=== PATIENT | male | born 1940 | race Caucasian/White ===

== ENCOUNTER 2022-03-03 06:26 | Day surgery (SDC) | payer MEDICARE, BC, SELFPAY ==
[2022-03-03] VITALS (22 sets, daily range): BP systolic 93–155; BP diastolic 43–92; PULSE 50–82; RESP 12–24; TEMP 35.7–36.8; O2SAT 91–98; BMI 37.0
[2022-03-03] MEDS: LACTATED RINGERS 1000 ML 1,000 ML 35 ML IV (07:00)
[2022-03-03] MEDS: ACETAMINOPHEN 500 MG TABLET 1000 MG PO ×2 (07:34→17:37)
[2022-03-03] MEDS: CELECOXIB 200 MG CAPSULE PO ×2 (07:35→20:41)
[2022-03-03] MEDS: OXYCODONE (CR) 10 MG TAB.ER.12H PO (07:36)
[2022-03-03] MEDS: MIDAZOLAM HCL 1 MG/ML inj IVP (07:55)
[2022-03-03] MEDS: ETHYL CHLORIDE 116 ML SPRAY 1 APPLIC TOPICAL (07:55)
[2022-03-03] MEDS: SODIUM CHLORIDE 0.9 % (FLUSH) 10 ML SYRINGE IVF (07:55)
[2022-03-03] MEDS: fentaNYL 100 MCG/2 ML inj IVP (07:55)
--- NOTE | 2022-03-03 08:03 | SUR.PREOP ---
TIME?OUT:?0754 PT/RN/MDA?VERIFICATION?OF?SURGICAL?SITE RIGHT KNEE,?PROCEDURE NERVE BLOCK,?AND?CONSENT OBTAINED?PRIOR?TO?INVASIVE?PROCEDURE.
[2022-03-03] MEDS: CEFAZOLIN 2 GM INJ IVP (08:22)
--- NOTE | 2022-03-03 09:09 | P.NB_ITS ---
Nerve Block Nerve Block Time Seen by Provider: 07:40 Date Seen: 03/03/22 Type of block requested by surgeon for post-operative analgesia: adductor canal Side: right Time out performed: Yes Verification of patient name: Yes Verification of date of : Yes Site marking: site marked Name of person performing procedure: Stew Continuous monitoring Was continuous monitoring of O2 sat, B/P, groundwater monitoring technician, recorded every 15 minutes?: Yes Procedure Checklist: sterile prep, needles and gloves Ultrasound guided. Images saved: Yes Medications given in 5ml increments after negative aspiration: Ropivicaine %: 0.5 mL: 20 Needle gauge: 22 Decadron (mg): 10 Precedex (mcg): 25 Patient tolerated procedure well: Yes Additional comments: Needle noted adjacent to nerve
--- NOTE | 2022-03-03 09:10 | P.NB_ITS ---
Nerve Block Nerve Block Time Seen by Provider: 07:40 Date Seen: 03/03/22 Type of block requested by surgeon for post-operative analgesia: geniculars Time out performed: Yes Verification of patient name: Yes Verification of date of : Yes Site marking: site marked Name of person performing procedure: Stew Continuous monitoring Was continuous monitoring of O2 sat, B/P, monitoring tech, recorded every 15 minutes?: Yes Procedure Checklist: sterile prep, needles and gloves Ultrasound guided. Images saved: Yes Medications given in 5ml increments after negative aspiration: Ropivicaine %: 0.5 mL: 9 Needle gauge: 25 Patient tolerated procedure well: Yes Additional comments: Needle noted adjacent to nerve
--- NOTE | 2022-03-03 09:17 | PC.NURSE ---
NS 3000ml used for irrigation.
--- NOTE | 2022-03-03 09:48 | CRLHL7_ITS ---
For Patients: As a result of the Cures Act, medical imaging exams and procedure reports are released immediately into your electronic medical record. You may view this report before your referring provider. If you have questions, please contact your health care provider. Indication: Postop Technique: Two views right knee Findings/Impression: Hardware from a right total knee arthroplasty is in satisfactory position. Bone alignment is normal. No sign of acute fracture. Postop changes are within normal limits. Dictated by Jae Penny MD @ 03/03/2022 11:35:04 AM (Electronically Signed)
--- NOTE | 2022-03-03 09:50 | P.ORPRC_ITS ---
Procedure Note Procedure: SURGEON: Maximo Ortiz MD MONITORING TECH: GUDELIA Queen PREOPERATIVE DIAGNOSIS: Right knee osteoarthritis POSTOPERATIVE DIAGNOSIS: Right knee osteoarthritis NAME OF OPERATION: Right total knee arthroplasty ANESTHESIA: Spinal ESTIMATED BLOOD LOSS: 0 mL COMPLICATIONS: None SPECIMENS: None DRAINS: None PREOPERATIVE ANTIBIOTICS: Ancef 3 grams IMPLANTS: 1. J&J Attune # 7 posterior stabilized femur 2. # 7 fixed-bearing tibia 3. # 7 posterior stabilized, 5 mm fixed-bearing polyethylene 4. 38 patella INDICATIONS: The patient is a 81-year-old male with a longstanding history of severe, unrelenting right knee pain secondary to end-stage (grade IV) right knee osteoarthritis. Despite appropriate nonoperative management, including activity modification, anti-inflammatories, [id number] pain medication, bracing, physical therapy, and injections they continue to have pain and disability. Operative intervention was offered. The risks, benefits and expected outcomes were discussed in detail. These included but were not limited to: Infection, bleeding, injury to blood vessel or nerve, venous thromboembolism. All questions were answered to their satisfaction. Use of an healthcare administrative assistant was necessary throughout the case for patient positioning and safety, soft tissue retraction, and closure. PROCEDURE: Spinal anesthesia was administered. The patient was placed supine on the operating table. The healthcare administrative assistant made sure the patient was positioned appropriately. The lower extremity was prepped and draped in the usual sterile fashion. The limb was exsanguinated with the Feng bandage. The pneumatic tourniquet was inflated to 300 mmHg. A standard anterior incision was made with the knee in flexion. Subcutaneous dissection was sharply taken through fascial layer #1. Full-thickness medial and lateral flaps were elevated. The healthcare administrative assistant retracted the soft tissues and protected them throughout the case. A standard medial parapatellar approach was made. The patella was everted. The infrapatellar fat pad was preserved. The menisci and cruciate ligaments were sharply d?brided. Marginal osteophytes were d?brided with the rongeur. The drill was used to penetrate the femoral canal. The canal was aspirated and irrigated with pulse lavage. The intramedullary femoral guide was placed for a 5-degree valgus cut, removing 10 mm off the distal femur. The saw was used to make the cut. Whitesides line and the trans epicondylar axis were marked. The femoral sizing guide was pinned onto the distal femur. Three degrees of external rotation nicely parallels the transepicondylar axis. Pins were placed for posterior referencing. The four-in-one cutting guide was pinned onto the distal femur. The anterior, posterior, and chamfer cuts were made. The healthcare administrative assistant protected the collateral ligaments. The box cutting guide was pinned. The box cuts were made. The boxed trial was placed and was an excellent fit. Drill holes for the lugs were made. Attention was then turned to the proximal tibia. The extramedullary tibial guide was placed for a neutral varus/valgus cut with 5 degrees of posterior slope, removing 1 mm based off the medial tibial surface. The healthcare administrative assistant protected the collateral ligaments and the neurovascular bundle. The saw was used to make the cut. Trial components were placed. The knee was nicely balanced in both flexion and extension. Rotation of the tibial component was matched to the femur in full extension, matched to our tibial cutting pins, and marked with cautery. The trial components were removed. The tray was pinned by the healthcare administrative assistant and the drill and the punch were used. The tray was removed. The punch was used again. We placed a bone plug in the femoral canal. Attention was then turned to the patella. [place] patellar thickness was 22 mm. The lobster claw resection guide was used with the 9.5 mm edgar. The saw was used to make the cut. Drill holes were made by the healthcare administrative assistant. The trial was placed and was an excellent fit. Cancellous surfaces were irrigated with pulse lavage and thoroughly dried by the healthcare administrative assistant. We cemented the tibial component, then the femoral component. A trial spacer was placed. The knee was brought into full extension. We then cemented the patellar component. Excessive cement was removed. The cement was allowed to harden. Any remaining excessive cement was removed with the osteotome. We impacted the 5 mm polyethylene onto the tibial tray. The knee was taken th rough a range of motion and was found to be nicely balanced in both flexion and extension. The patella tracks centrally. The healthcare administrative assistant did a three minute dilute Betadine solution soak. The healthcare administrative assistant irrigated the wound with 3 liters of normal saline via pulse lavage. The healthcare administrative assistant reapproximated the extensor mechanism with #1 Vicryl in an interrupted [id number] fashion. The healthcare administrative assistant then ran the extensor mechanism with a #1 PDO Stratafix. The healthcare administrative assistant closed the subcutaneous tissues with a 3-0 Stratafix and the skin with a running 3-0 Stratafix in a subcuticular fashion. Glue was used to seal the skin. The healthcare administrative assistant placed a dry dressing, INO stocking, and Polar Care. Sponge and needle counts were correct x2. The patient tolerated the procedure well. There were no apparent complications. They were carefully transferred to the hospital bed and taken to the postanesthesia care unit in satisfactory condition. PLAN: The patient will be mobilized with physical therapy. Aspirin will be used for DVT prophylaxis. They will be discharged to home once medically appropriate.
--- NOTE | 2022-03-03 10:36 | W.ANESCHARGE ---
Anesthesia Charges Start Date/Time Anesthesia Start Date: 03/03/22 Anesthesia Start Time: 08:10 Stop Date/Time Anesthesia Stop Date: 03/03/22 Anesthesia Stop Time: 10:30 Summary Emergency: No Extremes of Age: Over 70-CPT 03596
--- NOTE | 2022-03-03 12:51 | W.ANESCHARGE ---
Anesthesia Charges Start Date/Time Anesthesia Start Date: 03/03/22 Anesthesia Start Time: 08:10 Stop Date/Time Anesthesia Stop Date: 03/03/22 Anesthesia Stop Time: 10:30 Summary Emergency: No Extremes of Age: Over 69-CPT 92563
[2022-03-03] MEDS: OXYCODONE 5 MG TABLET PO ×2 (13:13→17:35)
[2022-03-03] MEDS: CEFAZOLIN 3 GM in 0.9 % SODIUM CHLORIDE 100 ml 100 ML IVPB ×2 (15:07→22:08)
--- NOTE | 2022-03-03 16:48 | P.IMCN_ITS ---
Date of Consult Patient: Other (Dr. Nur, [facility], [place], [place]) Consult date: 03/03/22 Requesting Physician: Orthopedics Primary Care Provider: Bobby Nur MD Consult Narrative Reason for consult: Assist with hypertension, hyperlipidemia, benign prostatic hyperplasia. Narrative: Kurt [place] is a 81 year old male. Has had longstanding knee pain related to end-stage osteoarthritis. Multiple non-operative modalities attempted to manage this but without success. Undertakes elective right total knee arthroplasty today successfully without any obvious apparent complications. 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 Denies recent fever, rigors, diaphoresis. Denies weight gain or weight loss. Denies angina or anginal equivalent, syncope near syncope, nausea vomiting, pa lpitations, diaphoresis, dyspnea at rest, paroxysmal nocturnal dyspnea orthopnea. Denies claudication. Bowel and bladder habits satisfactory. No recent travel, trauma, or injury. Denies blood loss of any sort. I reviewed the preoperative exam dated 02/02/2022 per his primary care physician. [facility] Medical History (Updated 03/03/22 @ 16:57 by Martín Mayorga MD) Bundle branch block, right Hypertension Surgical History History of appendectomy Family History Mother No problems noted. Father No problems noted. Social History Narrative: Alcohol Use: Yes Recreational Drug Use: No Smoking Status: Never smoker Do you use any of these nicotine containing products: None How often do you have a drink containing alcohol: never AUDIT-C Alcohol total score: 0 Non-prescribed substance use: denies use Caffeine: No Meds Home Medications and Allergies Home Medications Medication Instructions Recorded Confirmed Type nifedipine 60 mg tablet,extended 60 mg PO Q24H 03/02/22 03/03/22 History release simvastatin 20 mg tablet 20 mg PO HS 03/02/22 03/03/22 History tamsulosin 0.4 mg capsule 0.4 mg PO Q24H 03/02/22 03/03/22 History Home Medication Comments: Has been stable on these 3 medicines for some time. Nifedipine employed for hypertension. Simvastatin employed for hyperlipidemia. Tamsulosin employed for benign prostatic hyperplasia. Allergies Allergy/AdvReac Type Severity Reaction Status Date / Time No Known Drug Allergies Allergy Verified 03/03/22 07:20 Exam Narrative: Exam Narrative: Awake. Alert. Oriented to self, place, time, situation. Talkative. Articulate. Mood and affect are congruent. Symmetric bilateral neurosensory hearing deficit, chronic. Lungs are clear to auscultation. Heart tones with regular rhythm, normal S1-S2, no murmur gallop or rub. Abdomen is obese with active bowel sounds, soft, nontender. Const: Vital Signs, click to edit/add: Vital Signs - 24 hr 03/03/22 07:06 03/03/22 07:55 03/03/22 08:00 Temperature 98.3 F Pulse Rate 66 65 72 Pulse Rate [Right Pulse Oximeter] Respiratory Rate 16 14 14 Blood Pressure 148/82 H 155/92 H 152/84 H Blood Pressure [Ri ght Arm] Pulse Oximetry 96 98 96 03/03/22 10:36 03/03/22 10:40 03/03/22 10:45 Temperature 98.3 F Pulse Rate 60 57 L 56 L Pulse Rate [Right Pulse Oximeter] Respiratory Rate 16 16 16 Blood Pressure 96/51 L 97/46 L 93/43 L Blood Pressure [Ri ght Arm] Pulse Oximetry 93 96 96 03/03/22 10:50 03/03/22 10:55 03/03/22 11:02 Temperature 98.3 F 98.3 F 98.3 F Pulse Rate 56 L 55 L 53 L Pulse Rate [Right Pulse Oximeter] Respiratory Rate 16 16 16 Blood Pressure 98/83 95/53 L 104/48 L Blood Pressure [Ri ght Arm] Pulse Oximetry 97 96 94 03/03/22 11:05 03/03/22 11:10 03/03/22 11:40 Temperature 98.3 F 98.3 F 96.3 F L Pulse Rate 53 L 50 L 82 Pulse Rate [Right Pulse Oximeter] 61 Respiratory Rate 16 16 18 Blood Pressure 105/60 106/47 L Blood Pressure [Ri ght Arm] 131/82 Pulse Oximetry 93 96 03/03/22 11:45 03/03/22 12:00 03/03/22 12:15 Temperature 96.4 F L Pulse Rate Pulse Rate [Right Pulse Oximeter] 67 62 61 Respiratory Rate 16 24 Blood Pressure Blood Pressure [Ri ght Arm] 132/74 138/84 138/84 Pulse Oximetry 92 91 03/03/22 12:45 03/03/22 13:15 03/03/22 14:30 Temperature 96.4 F L 96.6 F L 96.7 F L Pulse Rate Pulse Rate [Right Pulse Oximeter] 55 L 55 L 68 Respiratory Rate 20 Blood Pressure Blood Pressure [Ri ght Arm] 134/74 121/79 129/78 Pulse Oximetry 91 91 94 03/03/22 15:42 Temperature 97.0 F L Pulse Rate Pulse Rate [Right Pulse Oximeter] 72 Respiratory Rate 12 Blood Pressure Blood Pressure [Ri ght Arm] 121/71 Pulse Oximetry 93 Assessment and Plan Assessment and plan (1) Hyperlipidemia: Status: Acute (2) Benign prostatic hyperplasia: Status: Acute (3) Hypertension: Status: Acute (4) Bundle branch block, right: Status: Acute (5) Osteoarthritis of right knee: Status: Acute (6) Obesity (BMI 35.0-39.9 without comorbidity): Status: Acute Plan I reviewed impression with patient and his . They have been for 60 years. Will hold antihypertensive medicine tonight. Continue with other medications. Venous thromboembolism prophylaxis per Orthopedic surgery. Agree with perioperative antibiotic prophylaxis as instituted.
--- NOTE | 2022-03-03 18:53 | PC.NURSE ---
[id number] Pt arrived to unit 1128 post RTKA, accompanied by . VSS, pain score remained 2-4/10, bandage clean dry and intact, CMS intact. Cryo-ice wrap in place, bilateral INO hose and compression boots on. LR 75ml/hr, IV in right hand, patent, and asymptomatic. Independently changing positions in bed, transfer assist x1 using walker and gait belt. Pt alert and oriented x3. Eating and drinking sufficiently. Encouraged to call for assistance to walk to bathroom instead of using urinal, in order to maintain strength and proper blood flow. Educated on IS, pt using frequently and independently.
[2022-03-03] MEDS: ASPIRIN 81 MG TABLET EC PO (20:38)
[2022-03-03] MEDS: TAMSULOSIN HCL 0.4 MG CAPSULE PO (20:40)
[2022-03-03] MEDS: SIMVASTATIN 20 MG TABLET PO (20:41)
[2022-03-03] MEDS: SENNOSIDES 1 TAB TABLET 2 TAB PO (20:42)
[2022-03-03] MEDS: LACTATED RINGERS 1000 ML 1,000 ML 75 ML IV (20:43)
[2022-03-04 00:59] VITALS: BP 144/76; PULSE 69; RESP 20; TEMP 36.4; O2SAT 95
[2022-03-04 03:00] VITALS: BP 148/75; PULSE 59; RESP 18; TEMP 36.3; O2SAT 95
--- NOTE | 2022-03-04 05:33 | PC.NURSE ---
NURSING NOTE [id number]: PT PLEASANT AND COOPERATIVE. VSS AND WNL ON RA; AFEBRILE. AMBULATES WITH WALKER, GB, A1. RIGHT KNEE DRESSING CDI. UNEVENTFUL NIGHT.
[2022-03-04] MEDS: ACETAMINOPHEN 500 MG TABLET 1000 MG PO ×2 (06:53→06:55)
[2022-03-04] MEDS: CEFAZOLIN 3 GM in 0.9 % SODIUM CHLORIDE 100 ml 100 ML IVPB (06:56)
[2022-03-04 07:33] LABS: INR 1.11 (0.91-1.10); Prothrombin Time 14.7 Seconds
[2022-03-04 08:16] LABS: Hematocrit 39.8 % (37.0-53.0); Hemoglobin* 13.4 gm/dL (13.5-17.5); Mean Corpuscular HGB Conc 34 gm/dL (32-36); Mean Corpuscular Hemoglobin 29 pg (26-34); Mean Corpuscular Volume 87 fL (80-100); Platelet Count* 209 K/uL (140-440); Red Blood Count 4.58 m/uL (4.30-5.90); White Blood Count* 12.59 K/uL (4.50-11.00)
[2022-03-04 08:18] LABS: Chloride* 100 mmol/L (96-114); Potassium* 4.2 mmol/L (3.6-5.1); Sodium* 132 mmol/L (135-149)
[2022-03-04 08:19] LABS: Slide Review Reflex No
[2022-03-04 08:21] LABS: Creatinine* 0.7 mg/dL (0.5-1.5); Est. Creatinine Clearance* 62.51
[2022-03-04 08:22] LABS: Blood Urea Nitrogen* 15 mg/dL (7-30); Carbon Dioxide* 27 mmol/L (20-32)
[2022-03-04 08:25] VITALS: BP 135/70; PULSE 59; RESP 18; TEMP 36.8; O2SAT 94
[2022-03-04] MEDS: OXYCODONE 5 MG TABLET PO ×2 (08:29→13:13)
[2022-03-04] MEDS: CELECOXIB 200 MG CAPSULE PO (08:34)
[2022-03-04] MEDS: ASPIRIN 81 MG TABLET EC PO (08:36)
[2022-03-04] MEDS: SENNOSIDES 1 TAB TABLET 2 TAB PO (08:36)
--- NOTE | 2022-03-04 09:29 | PM.ORPN ---
Subjective Subjective Time Seen by Provider: 08:00 Date Seen: 03/04/22 Principal diagnosis: Status post left knee replacement Interval history: patient is comfortable this morning. His accompanies him in his room this morning. Plan for discharge is today home. Ortho Exam Narrative Exam Narrative: Alert and oriented x3. Patient is in no acute distress. Converses without labored breathing. Hearing is grossly intact. Ambulates with a Walker. Examination of the right lower extremity shows effusion is present. Mild soft tissue edema about the right knee. Dressing is intact. Exquisitely tender deep central posterior Right calf. Left calf is soft and nontender. CMS intact right lower extremity. Const Vital Signs, click to edit/add: Vital Signs - 24 hr 03/03/22 10:36 03/03/22 10:40 03/03/22 10:45 Temperature 98.3 F Pulse Rate 60 57 L 56 L Pulse Rate [Left Pulse Oximeter] Pulse Rate [Right Pulse Oximeter] Respiratory Rate 16 16 16 Blood Pressure 96/51 L 97/46 L 93/43 L Blood Pressure [Left Arm] Blood Pressure [Right Arm] Pulse Oximetry 93 96 96 03/03/22 10:50 03/03/22 10:55 03/03/22 11:02 Temperature 98.3 F 98.3 F 98.3 F Pulse Rate 56 L 55 L 53 L Pulse Rate [Left Pulse Oximeter] Pulse Rate [Right Pulse Oximeter] Respiratory Rate 16 16 16 Blood Pressure 98/83 95/53 L 104/48 L Blood Pressure [Left Arm] Blood Pressure [Right Arm] Pulse Oximetry 97 96 94 03/03/22 11:05 03/03/22 11:10 03/03/22 11:40 Temperature 98.3 F 98.3 F 96.3 F L Pulse Rate 53 L 50 L 82 Pulse Rate [Left Pulse Oximeter] Pulse Rate [Right Pulse Oximeter] 61 Respiratory Rate 16 16 18 Blood Pressure 105/60 106/47 L Blood Pressure [Left Arm] Blood Pressure [Right Arm] 131/82 Pulse Oximetry 93 96 03/03/22 11:45 03/03/22 12:00 03/03/22 12:15 Temperature 96.4 F L Pulse Rate Pulse Rate [Left Pulse Oximeter] Pulse Rate [Right Pulse Oximeter] 67 62 61 Respiratory Rate 16 24 Blood Pressure Blood Pressure [Left Arm] Blood Pressure [Right Arm] 132/74 138/84 138/84 Pulse Oximetry 92 91 03/03/22 12:45 03/03/22 13:15 03/03/22 14:30 Temperature 96.4 F L 96.6 F L 96.7 F L Pulse Rate Pulse Rate [Left Pulse Oximeter] Pulse Rate [Right Pulse Oximeter] 55 L 55 L 68 Respiratory Rate 20 Blood Pressure Blood Pressure [Left Arm] Blood Pressure [Right Arm] 134/74 121/79 129/78 Pulse Oximetry 91 91 94 03/03/22 15:42 03/03/22 16:30 03/03/22 18:00 Temperature 97.0 F L 97.4 F L 97.5 F L Pulse Rate Pulse Rate [Left Pulse Oximeter] Pulse Rate [Right Pulse Oximeter] 72 75 67 Respiratory Rate 12 Blood Pressure Blood Pressure [Left Arm] Blood Pressure [Right Arm] 121/71 128/78 148/86 H Pulse Oximetry 93 92 92 03/03/22 19:15 03/04/22 00:59 03/04/22 03:00 Temperature 97.1 F L 97.5 F L 97.4 F L Pulse Rate Pulse Rate [Left Pulse Oximeter] 59 L Pulse Rate [Right Pulse Oximeter] 75 69 Respiratory Rate 16 20 18 Blood Pressure Blood Pressure [Left Arm] 129/79 144/76 H 148/75 H Blood Pressure [Right Arm] Pulse Oximetry 94 95 95 03/04/22 08:25 Temperature 98.3 F Pulse Rate Pulse Rate [Left Pulse Oximeter] 59 L Pulse Rate [Right Pulse Oximeter] Respiratory Rate 18 Blood Pressure Blood Pressure [Left Arm] 135/70 Blood Pressure [Right Arm] Pulse Oximetry 94 Assessment and Plan Assessment and plan (1) Hyperlipidemia: Status: Acute (2) Benign prostatic hyperplasia: Status: Acute (3) Hypertension: Status: Acute (4) Bundle branch block, right: Status: Acute (5) Osteoarthritis of right knee: Status: Acute (6) Obesity (BMI 35.0-39.9 without comorbidity): Status: Acute (7) Status post right knee replacement: Status: Acute Assessment and Plan: Kurt will have a right lower extremity Doppler ultrasound to rule out DVT today 0945. If ultrasound is negative, Plan for discharge is today to home if they meet discharge criteria. DVT prophylaxis includes aspirin 81 mg twice daily x1 month, Stevan stockings x1 month may remove for 1 hr per day, frequent ambulation Remove dressing in 1 week. Observe wound and phone Orthopedics with any questions or concerns Return to clinic in 1 week for a wound check Return to clinic in [address] Ortiz Minimize narcotic use. Wean off and discontinue soon as possible. Activities as tolerated. No strenuous activity. Outpatient physical therapy as scheduled. Ice and elevate the operative extremity. No restriction on ice.
--- NOTE | 2022-03-04 09:45 | CRLHL7_ITS ---
For Patients: As a result of the Century Cures Act, medical imaging exams and procedure reports are released immediately into your electronic medical record. You may view this report before your referring provider. If you have questions, please contact your health care provider. INDICATION: POST OP, PAIN IN CALF COMPARISON: None. TECHNIQUE: A compression venous ultrasound exam was performed of the right lower extremity using johnson-scale imaging, color Doppler and spectral Doppler analysis. FINDINGS: Sonographic imaging of the right lower extremity demonstrates normal compressibility and color Doppler venous blood flow within the common femoral vein, deep femoral vein, and the proximal greater saphenous vein. Within the thigh, the femoral vein is patent and compressible. At a lower level, the popliteal and posterior tibial veins also show normal compressibility and color Doppler venous blood flow. Limited imaging of the contralateral groin demonstrates a normal spectral waveform and color Doppler venous blood flow within the left common femoral vein. IMPRESSION: Normal venous ultrasound exam. No evidence of deep vein thrombosis within the right lower extremity. Dictated by Jae Penny MD @ 03/04/2022 10:42:07 AM (Electronically Signed)
--- NOTE | 2022-03-04 10:56 | PC.SOCIAL ---
Met with pt. and spouse to discuss discharge plans. 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 Pt. plans to discharge home with spouse support and does not feel he will need any additional resources for discharge at this time. Pt. is aware he can contact social work program coordinator if he needs any additional assistance.
--- NOTE | 2022-03-08 11:34 | PM.DS1 ---
DS: Providers Provider Time Seen by Provider: 09:00 Date Seen: 03/04/22 Date of admission: 03/03/2022 Primary care physician: Bobby Nur MD Admitting Clinician: Maximo Ortiz MD Consults: 03/03/22 09:47 Consult to Occupational Therapy [CONS] Routine Comment: See nursing Activity Order Reason(s) for OT Consult:: Evaluate and Treat Any Restrictions?:: No Restrictions Consult to Physical Therapy [CONS] Routine Comment: Ambulate in the thomas today. Reason(s) for PT Consult:: Evaluate and Treat Any Restrictions?:: No Restrictions Consult to Residential Housekeeper [CONS] Routine Comment: Reason for Consult:: Discharge Planning Needs Attending Physician on discharge: Maximo Ortiz MD Date of Discharge: 03/04/22 DS: Diagnosis Discharge Diagnosis (1) Status post right knee replacement: Status: Acute (2) Osteoarthritis of right knee: Status: Acute (3) Hypertension: Status: Acute (4) Obesity (BMI 35.0-39.9 without comorbidity): Status: Acute (5) Benign prostatic hyperplasia: Status: Acute (6) Hyperlipidemia: Status: Acute (7) Bundle branch block, right: Status: Acute DS: Summary Hospital Course Hospital Course: 81-year-old man presented for right total knee arthroplasty per Dr. Maximo Ortiz. This was undertaken successfully without any apparent complications. Status at Discharge Cognitive/behavioral status at discharge: Alert, oriented to self, place, time, situation. Articulate. Cooperative. Able to make safe decisions on his own behalf. Functional status at discharge: uses cane/walker Overall status at discharge: patient is progressing back to baseline Time Spent with Patient Time attestation: Total time spent providing and/or coordinating discharge services: Time spent: Less than 30 minutes Exam Narrative: Exam Narrative: Mild to moderate decrease in hearing, chronic. Lungs are clear to auscultation. Heart tones with regular rhythm, normal S1-S2. Abdomen is obese, active bowel sounds, soft, nontender. Able to transfer and walk independently with use of walker. Const: Documenting provider has reviewed patient's vital signs: yes Discharge Plan Discharge Disposition: Home, Self-Care Discharging Surgeon: Maximo Ortiz Follow-Up Appointment: 1 wk Prescriptions: New acetaminophen 500 mg Tablet 500 - 1,000 mg PO Q6H MDD 4000mg daily PRNQty: 100 0RF aspirin 81 mg Tablet,Delayed Release (Dr/Ec) 81 mg PO BID Qty: 60 0RF Rx Instructions: For DVT prophylaxis oxycodone 5 mg Tablet 2.5 - 5 mg PO Q4-6H PRN (Reason: Pain) Qty: 42 0RF Rx Instructions: Minimize. Discontinue as soon as possible sennosides [Senna Lax] 8.6 mg Tablet 17.2 mg PO BID PRNQty: 100 0RF Rx Instructions: For narcotic related constipation Continued nifedipine 60 mg tablet extended release 60 mg PO Q24H 0RF simvastatin 20 mg tablet 20 mg PO HS 0RF Label Comments: TAKE ONE TABLET BY MOUTH AT BEDTIME tamsulosin 0.4 mg capsule 0.4 mg PO Q24H 0RF Label Comments: TAKE ONE CAPSULE BY MOUTH EVERY DAY Activity Level: Activity as Tolerated and No strenuous activity Activity Detail: Keep dressing on for 1 week. Dressing is waterproof. May shower. Surgical glue covers the wound. Attend Outpatient physical therapy as scheduled. Ice operative extremity without restriction. Wear compression stockings for 1 month postsurgery. May remove for 1 hour per day. Notify Orthopedics with any questions or concerns ([phone]). Discharge Diet: Heart Healthy (2 gm sodium, low fat) Patient Instructions: Acetaminophen (By mouth), Aspirin (By mouth), Laxative, Stimulant (By mouth), Oxycodone, Rapid Release (By mouth), Surgical Site Infections (DC), Knee Replacement (DC) Forms: Work/Release Restrictions Follow-up: Bobby Nur MD [Primary Care Provider] - Nikole Servin PA-C [Physician Field Assembly Supervisor] - 03/12/22 8:30 am ([facility] Schedule 6 week surgeon appointment at this time.) Discharge Orders: Discharge Order (Routine); Ordered 03/04/22 Ordered By: Martín Mayorga
== END 2022-03-04 13:20 | disposition home or self-care (01) ==
LOC: OR 06:28 → MEDSURG 16:29
PROVIDERS: Internal Medicine; PCP Family Medicine; Visit Provider Orthopaedic Surgery
PROC: (CPT 27447; principal; 2022-03-03 08:30)
DX: M17.11 Unilateral primary osteoarthritis, right knee (principal); I10 Essential (primary) hypertension; E78.5 Hyperlipidemia, unspecified; N40.0 Benign prostatic hyperplasia without lower urinary tract symptoms; I45.10 Unspecified right bundle-branch block; E66.9 Obesity, unspecified; Z68.37 Body mass index [BMI] 37.0-37.9, adult
CPT/HCPCS: 27447; 1402; 36415; 73560; 80051; 82565; 84520; 85027; 85610; 93971; 97110; 97116; 97161; 97165; 97530; 97535; 99100; A9270; C1776; J0690; J1100; J2250; J2405; J2704; J2795; J3010; J7120